=== PATIENT | female | born 1950 | race American Indian/Alaskan Native ===

== ENCOUNTER 2019-03-20 17:18 | Emergency (ER) | payer MEDICARE ==
[2019-03-20 17:42] VITALS: BP 179/86
--- NOTE | 2019-03-20 17:44 | Event Note ---
ED Screening Note Date of service: 03/20/19 ED Screening Note: This initial assessment/diagnostic orders/clinical plan/treatment(s) is/are subject to change based on patients health status, clinical progression and re- assessment by fellow clinical providers in the ED. Further treatment and workup at subsequent clinical providers discretion. Patient/guardian urged not to elope from the ED as their condition may be serious if not clinically assessed and managed. Initial orders include: 68yo BF states that she fell hit her head, injured her L 5th finger which is dislocated, has a swollen L 4th finger with a ring that is causing pain, and knee pain x 1 day. She has swelling above her L eye that is painful.
[2019-03-20] MEDS ORDERED: oxyCODONE /ACETAMINOPHEN 5-325MG TAB PO ONE (19:20)
[2019-03-20] MEDS ORDERED: TETANUS,DIPH,PERTUSS(ACELL) VACCINE 0.5 ML SYRINGE IM ONE (19:20)
--- NOTE | 2019-03-20 19:23 | Emergency Department Report ---
ED Fall HPI - General Chief Complaint: Fall Stated Complaint: FALL/POSS DISLOCATED L PINKY Time Seen by Provider: 03/20/19 18:46 Source: patient, RN notes reviewed Mode of arrival: Ambulatory Limitations: No Limitations - History of Present Illness Initial Comments: This is a pleasant 68-year-old female, right-hand dominant, not known to this provider previously. Patient presents to the emergency room today after mechanical fall while running after grandchildren and home. She does not know if she is up-to-date with tetanus vaccinations. She typically lives in [place]. She is visiting from out of town. She reports being in her usual state of health earlier on today, when she asked him he tripped and fell, hitting her head, left knee, left side, and left hand. She has no midline neck pain. She has left pinky pain, left volar palm and ring finger pain, left knee pain, which is sharp, throbbing and aching, increases with palpation and de creases with rest. She has a small ring on her ring finger which she requests be cut off for comfort. MD Complaint: fall -: Sudden Fall From: standing When Fall Occurred: 1 hour [employer] Fall Witnessed: yes, by family Place Fall Occurred: other Loss of Consciousness: none Prolonged Down Time?: no Symptoms Prior to Fall: none Location: other Location - Extremities: Left: Hand, Knee Severity: mild Quality: other Context: tripped/slipped Associated Symptoms: headache. denies: neck pain, numbness, weakness, chest paint, shortness of breath, abdominal pain, hematuria, unable to walk, lightheaded, vertigo, confusion - Related Data Allergies Allergy/AdvReac Type Severity Reaction Status Date / Time No Known Allergies Allergy Unverified 03/20/19 17:23 ED Review of Systems ROS: Stated complaint: FALL/POSS DISLOCATED L PINKY Other details as noted in HPI Constitutional: denies: fever Eyes: denies: eye discharge ENT: denies: congestion Respiratory: denies: wheezing Cardiovascular: denies: syncope Gastrointestinal: denies: abdominal pain Musculoskeletal: arthralgia, myalgia Skin: denies: lesions Neurological: denies: weakness, numbness, paresthesias Hematological/Lymphatic: denies: easy bleeding ED Past Medical Hx - Past Medical History Previous Medical History?: Yes Hx Hypertension: Yes Hx Diabetes: Yes - Surgical History Past Surgical History?: Yes Additional Surgical History: Hysterectomy - Social History Smoking Status: Never Smoker Substance Use Type: None ED Physical Exam - General Limitations: No Limitations, Other (during the entire history and physical ex amination, 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 Absent: nystagmus - ENT ENT exam: Present: normal exam, normal orophraynx, mucous membranes moist, normal external ear exam - Neck Neck exam: Present: normal inspection, full ROM. Absent: tenderness, meningismus - Respiratory Respiratory exam: Present: normal lung sounds bilaterally. Absent: respiratory distress - Cardiovascular Cardiovascular Exam: Present: regular rate, normal rhythm, normal heart sounds. Absent: bradycardia, tachycardia, irregular rhythm, systolic murmur, diastolic murmur, rubs, gallop - GI/Abdominal GI/Abdominal exam: Present: soft. Absent: distended, tenderness, guarding, rebound, rigid, pulsatile mass - Extremities Exam Extremities exam: Present: full ROM, tenderness (there is no left-sided D tenderness.2+ pulses noted in the bilateral upper, lower extremities. There is no long bone tenderness. Musculoskeletal compartments are soft. The pelvis is stable.), other (left knee abrasion noted. There is no joint laxity. There is no joint instability. There is a left pinky dislocation, at the PIP joint, and there is a 1.5 cm palm volar laceration, just proximal to the fourth carpometacarpal joint.) - Back Exam Back exam: Present: normal inspection, full ROM. Absent: tenderness, CVA tenderness (R), paraspinal tenderness, vertebral tenderness - Neurological Exam Neurological exam: Present: alert, oriented X3, normal gait, other (there is no facial droop. The tongue is midline. Extraocular movements are intact bilat erally. Patient speaking in full complete sentences. Shoulder shrug is intact bilaterally. Hearing is grossly intact bilaterally. Visual acuity intact to finger counting and color perception at a close distance. 5/5 strength 4 extremities. Sensation intact to light touch in 4 extremities.). Absent: motor sensory deficit - Psychiatric Psychiatric exam: Present: normal affect, normal mood - Skin Skin exam: Present: warm ED Course Vital Signs 03/20/19 17:40 Temperature 98.1 F Pulse Rate 75 Respiratory 16 Rate Blood Pressure 179/86 O2 Sat by Pulse 100 Oximetry - Procedure Description Procedures done: Using direct gentle distally applied traction, left pinky dislocation is gently reduced, without any significant difficulty. The patient tolerated the procedure well. - Laceration /Wound Repair Left Upper Volar Hand Wound Location: upper extremity Wound Length (cm): 1 (1.5 cm) Wound's Depth, Shape: linear, contused tissue Wound Explored: clean Irrigated w/ Saline (ccs): 250 Betadine Prep?: No Anesthesia: 1% Lidocaine Volume Anesthetic (ccs): 5 Wound Repaired With: sutures Suture Size/Type: 5:0 (interrupted monofilament) Number of Sutures: 2 Layer Closure?: No Sterile Dressing Applied?: Yes ED Medical Decision Making - Lab Data Vital Signs 03/20/19 17:40 Temperature 98.1 F Pulse Rate 75 Respiratory 16 Rate Blood Pressure 179/86 O2 Sat by Pulse 100 Oximetry - Radiology Data Radiology results: report reviewed, image reviewed Print Report Referring Physician: PRETTY SUBRAMANIAN Patient Name: MOISES WASHINGTON Date of : 1950 Sex: Female Report Date: 2019-03-20 Report Status: Finalized Findings [address] [address] XRay Report Signed Patient: MOISES WASHINGTON MR#: [id number] : 1950 Acct:[id number] Age/Sex: 68 / F ADM Date: 03/20/19 Loc: ED Attending Dr: Ordering Physician: PRETTY SUBRAMANIAN MD Date of Service: 03/20/19 Procedure(s): XR hand 3+V LT Accession Number(s): [id number] cc: PRETTY SUBRAMANIAN MD Fluoro Time In Minutes: CXR LEFT HAND 3 VIEWS INDICATION / CLINICAL INFORMATION: left hand trauma and pain COMPARISON: None available. FINDINGS: BONES / JOINT(S): There is dorsal subluxation of the small finger at the proximal interphalangeal joint suggesting injury to the flexor mechanism. On the lateral radiograph, there is suggestion of cortical irregularity along the anterior aspect of the base of the small finger middle phalanx suggesting a nondisplaced fracture. No other acute displaced fracture identified. SOFT TISSUES: Mild soft tissue swelling of the small finger. ADDITIONAL FINDINGS: None. Signer Name: Rachle Bañuelos MD Signed: 03/20/2019 8:07 PM Workstation Name: [id number] Transcribed By: [facility] Dictated By: Rachel Bañuelos MD Electronically Authenticated By: Rachel Bañuelos MD Signed Date/Time: 03/20/192006 DD/ 04 TD/TT: Print Report Referring Physician: PRETTY SUBRAMANIAN Patient Name: MOISES WASHINGTON Date of : 1950 Sex: Female Report Date: 2019-03-20 Report Status: Finalized Findings [facility] [address] [id number] Cat Scan Report Signed Patient: MOISES WASHINGTON MR#: [id number] : 1950 Acct:[id number] Age/Sex: 68 / F ADM Date: 03/20/19 Loc: ED Attending Dr: Ordering Physician: PRETTY SUBRAMANIAN MD Date of Service: 03/20/19 Procedure(s): CT head/brain wo con Accession Number(s): [id number] cc: PRETTY SUBRAMANIAN MD CT head/brain wo con INDICATION: blunt head trauma fall. TECHNIQUE: Routine CT head without contrast. All CT scans at this location are performed using CT dose reduction for ALARA by means of automated exposure control. COMPARISON: None. FINDINGS: BRAIN / INTRACRANIAL CONTENTS: No acute hemorrhage, brain edema, mass effect, or hydrocephalus. Normal wynn-white differentiation. No chronic infarct or focal atrophy. Normal brain volume and ventricular/sulcal size for age. CALVARIUM/SKULL BASE/CRANIOCERVICAL JUNCTION: No evidence of fracture. ORBITS: No significant abnormality of visualized orbits. SINUSES / MASTOIDS: No significant abnormality of visualized sinuses and mastoid air cells. ADDITIONAL FINDINGS: None. IMPRESSION: 1. No acute post-traumatic intracranial abnormality. Signer Name: Isacc Carter MD Signed: 03/20/2019 8:39 PM Workstation Name: [email or web address] Transcribed By: ODETTE Dictated By: Isacc Carter MD Electronically Authenticated By: Isacc Carter MD Signed Date/Time: 03/20/192038 - Medical Decision Making Differential diagnosis, including not limited to: Left pinky dislocation, left palm laceration, superficial abrasions, left knee abrasion, intracranial injury, mechanical fall Assessment and plan: 68-year-old female status post mechanical fall. She is afebrile with reassuring vital signs and clinically sober. She has a GCS of 15. Patient is clinically sober at this time. The cervical spine is cleared through nexus and comoran c spine rule Sensation is intact to light touch in the bilateral upper extremity deltoid, median, radial, ulnar distribution. Walking with a steady gait, no significant lower extremity tenderness, no lower extremities x-rays indicated at this time. CT scan brain negative for acute disease. Left palm laceration is repaired. Left pinky dislocation is reduced. Patient placed in a finger splint. She endorses that she is reliable to follow-up as an outpatient. Critical care attestation.: If time is entered above; I have spent that time in minutes in the direct care of this critically ill patient, excluding procedure time. ED Disposition Clinical Impression: Fall Qualifiers: Encounter type: initial encounter Qualified Code(s): W19.XXXA - Unspecified fall, initial encounter Abrasion of left knee Qualifiers: Encounter type: initial encounter Qualified Code(s): S80.212A - Abrasion, left knee, initial encounter Laceration of left palm Qualifiers: Encounter type: initial encounter Qualified Code(s): S61.412A - Laceration without foreign body of left hand, initial encounter Dislocation of left little finger Qualifiers: Encounter type: initial encounter Qualified Code(s): S63.257A - Unspecified dislocation of left little finger, initial encounter Disposition: DC-01 TO HOME OR SELFCARE Is pt being admited?: No Does the pt Need Aspirin: No Condition: Stable Additional Instructions: Keep the left little finger splint in place, and follow-up with the primary care doctor, orthopedist or hand specialist for left hand in the next 5-7 days. X- ray suggested possible nondisplaced fracture of left middle phalanx. Wash the sutures were gentle soap and water once every 12-24 hours, patient may apply [id number] bacitracin and Neosporin, once every 12-24 hours. Recommend sutures in the left hand be taken out in 5-7 days. Pain typically gets worse before gets better after mechanical fall. Patient may take [id number] Tylenol, alternating with atdv-bpj-lxyqazt ibuprofen, with food. Patient should return to the emergency room right away with new, worsened or different symptoms, or symptoms not present on the initial emergency room evaluation. Otherwise, please follow-up as directed. Referrals: [facility] [Provider Group] - 3-5 Days [facility] [Provider Group] - 3-5 Days [facility] [Provider Group] - 3-5 Days
--- NOTE | 2019-03-20 20:12 | XRay Report ---
CXR LEFT HAND 3 VIEWS INDICATION / CLINICAL INFORMATION: left hand trauma and pain COMPARISON: None available. FINDINGS: BONES / JOINT(S): There is dorsal subluxation of the small finger at the proximal interphalangeal ankit nt suggesting injury to the flexor mechanism. On the lateral radiograph, there is suggestion of corti rosa irregularity along the anterior aspect of the base of the small finger middle phalanx suggesting a nondisplaced fracture. No other acute displaced fracture identified. SOFT TISSUES: Mild soft tissue swelling of the small finger. ADDITIONAL FINDINGS: None. Signer Name: Rachel Bañuelos MD Signed: 03/20/2019 8:07 PM Workstation Name: [id number]
[2019-03-20] MEDS ORDERED: LIDOCAINE (1%) 10 MG/1 ML VIAL 20 ML MDV INFILTRATI ONE (20:18)
[2019-03-20] MEDS ORDERED: SODIUM CHLORIDE 0.9% IRR 500 ML BOTTLE IR ONE (20:18)
[2019-03-20] MEDS ORDERED: SODIUM CHLORIDE IRRI 500 ML 500 ML IR ONE (20:21)
[2019-03-20] MEDS ORDERED: LIDOCAINE (2%) 20 MG/1 ML VIAL 20 ML MDV INFILTRATI ONE (20:21)
[2019-03-20] MEDS ORDERED: ACETAMINOPHEN 500 MG TAB PO ONE (20:34)
--- NOTE | 2019-03-20 20:44 | Cat Scan Report ---
CT head/brain wo con INDICATION: blunt head trauma fall. TECHNIQUE: Routine CT head without contrast. All CT scans at this location are performed using CT dose reduction for ALARA by means of automated exposure control. COMPARISON: None. FINDINGS: BRAIN / INTRACRANIAL CONTENTS: No acute hemorrhage, brain edema, mass effect, or hydrocephalus. Lela l wynn-white differentiation. No chronic infarct or focal atrophy. Normal brain volume and ventricula r/sulcal size for age. CALVARIUM/SKULL BASE/CRANIOCERVICAL JUNCTION: No evidence of fracture. ORBITS: No significant abnormality of visualized orbits. SINUSES / MASTOIDS: No significant abnormality of visualized sinuses and mastoid air cells. ADDITIONAL FINDINGS: None. IMPRESSION: 1. No acute post-traumatic intracranial abnormality. Signer Name: Isacc Carter MD Signed: 03/20/2019 8:39 PM Workstation Name: [email or web address]
[2019-03-20] MEDS ORDERED: NEOMY 3.5 MG/BACIT 400 UNITS/POLY B 5000 UNITS/GM OINT PACKET TP ONE ×2 (20:46→20:47)
[2019-03-20] MEDS: BACITRACIN ZINC OINT 28.4 GM TP ONE ×2 (20:48→20:53)
== END 2019-03-20 21:45 | disposition home or self-care (01) ==
LOC: ED 17:18
DX: S63.257A Unspecified dislocation of left little finger, initial encounter (principal); S61.412A Laceration without foreign body of left hand, initial encounter; S80.212A Abrasion, left knee, initial encounter; W18.30XA Fall on same level, unspecified, initial encounter; Y93.89 Activity, other specified; Y92.89 Other specified places as the place of occurrence of the external cause; Y99.8 Other external cause status
CPT/HCPCS: 70450; 90471; 90715; A6250